=== PATIENT | male | born 1975 | race Hispanic/Latino ===

== ENCOUNTER 2017-05-29 13:51 | Emergency (ER) | payer BC ==
[2017-05-29 14:10] VITALS: RESP 18; O2SAT 98
--- NOTE | 2017-05-29 14:31 | ED PDOC ---
HPI: SOB/CHF/COPD History Per: Patient History/Exam Limitations: no limitations Onset/Duration Of Symptoms: Mins Current Symptoms Are (Timing): Better Initiating Event: Aspiration Current Respiratory Medications: None Associated Symptoms: Heart Racing, Light-headedness, Anxiety. denies: Fever, Chills, Sweating, Chest Pain, Bloody Cough, Productive Cough, Leg/Calf Pain, Ankle/Leg Swelling, Dizziness - Risk Factors PE Risk Factors: Neg: Extremity Immobilization/Fx, Decreased Mobilty /Activity, Recent Major Surgery, Recent Hospitalization, Active Cancer, Previous DVT, Previous PE, CHF, Venous Stasis, Recent Major Trauma <Crow Romo - Last Filed: 05/29/17 16:27> <Saloni Hernandez - Last Filed: 05/29/17 17:43> Time Seen by Provider: 05/29/17 14:04 Chief Complaint (Nursing): Shortness Of Breath Additional Complaint(s): CC: dyspnea HPI: 42 y/o man w/ no PMH presents to the ED w/ dyspnea. The patient reports the dyspnea started 30 minutes ago while he was sitting in his car and drinking water. The patient reports associated weakness, anxiety, and light-headedness. The patient denies headache, chest pain, abdominal pain, nausea, votiming, dysuria, and fevers. The patient reports that he has had panic attacks in the past, but the dyspnea today lasted longer. PMH: none PSH: none SOC: smokes 1 pack/day for about 20 years, drinks 6-7 beers about 3x a week, denies drugs ROS: negative for 12 points assessed unless otherwise reported in HPI (Crow Romo) Supervising Attending Note - Supervising Attending Note The Documented history was done by the: Physician Coal Screener, Attending Physician The documented physical exam was done by the: Physician Coal Screener, Attending Physician - Attestation: I have personally seen and examined this patient.: Yes I have fully participated in the care of the patient.: Yes I have reviewed all pertinent clinical information, including history, physical exam and plan: Yes <Saloni Hernandez - Last Filed: 05/29/17 17:43> Past Medical History - Family History Family History: States: Unknown Family Hx <Crow Romo - Last Filed: 05/29/17 16:27> <Saloni Hernandez - Last Filed: 05/29/17 17:43> Vital Signs: Last Vital Signs Temp 97.5 F L 05/29/17 15:18 Pulse 94 H 05/29/17 15:30 Resp 18 05/29/17 15:30 BP 156/98 H 05/29/17 15:30 Pulse Ox 98 05/29/17 16:27 - Allergies Allergies/Adverse Reactions: Allergies Allergy/AdvReac Type Severity Reaction Status Date / Time No Known Allergies Allergy Verified 05/29/17 14:02 Curb-65 Severity Score - CURB-65 Severity Score Confusion: No Bun >19mg/dl (>7mmol/L): No Respiratory Rate greater than/equal to 30: No Systolic BP <90 or Diastolic BP less than/equal 60mmHg: No Age >64: No Curb-65 Score: 0 Percentage 30-day mortality: 0.6% <Crow Romo - Last Filed: 05/29/17 16:27> Wells Criteria for PE - Wells Criteria for Pulmonary Embolism Clinical Signs and Symptoms of DVT: No P.E is #1 Diagnosis, or Equally Likely: No Heart Rate >100: Yes Immobilization at least 3 days;Surgery previous 4 weeks: No Previous, objectively diagnosed PE or DVT: No Hemoptysis: No Malignancy w/treatment within 6 months, or palliative: No Total Score: 1.5 <Crow Romo - Last Filed: 05/29/17 16:27> Review of Systems ROS Statement: Except As Marked, All Systems Reviewed And Found Negative Constitutional: Positive for: Weakness. Negative for: Fever, Chills, Sweats Eyes: Negative for: Vision Change Cardiovascular: Positive for: Palpitations, Light Headedness. Negative for: Chest Pain, Edema Respiratory: Positive for: Shortness of Breath. Negative for: Cough, Hemoptysis , Pleuritic Pain, Sputum, Wheezing Gastrointestinal: Negative for: Nausea, Vomiting, Abdominal Pain, Diarrhea Genitourinary Male: Negative for: Dysuria Skin: Negative for: Rash Neurological: Positive for: Weakness, Dizziness. Negative for: Numbness, Incoordination, Change in Speech, Confusion, Seizures, Altered Mental Status, Headache Psych: Positive for: Anxiety <Demetrius,Crow Be - Last Filed: 05/29/17 16:27> Physical Exam - Reviewed Nursing Documentation Reviewed: Yes Vital Signs Reviewed: Yes (tachycardia) - Physical Exam Appears: Positive for: No Acute Distress Head Exam: Positive for: ATRAUMATIC, NORMOCEPHALIC Skin: Positive for: Normal Color, Warm, Dry Eye Exam: Positive for: Normal appearance, EOMI, PERRL Neck: Positive for: Painless ROM, Supple Cardiovascular/Chest: Positive for: Chest Non Tender, Tachycardia. Negative for : Edema, JVD Respiratory: Positive for: Normal Breath Sounds (can speak in full sentences without interruption). Negative for: Decreased Breath Sounds, Accessory Muscle Use, Crackles, Rales, Rhonchi, Wheezing, Respiratory Distress Pulses-Carotid (L): 2+ Pulses-Carotid (R): 2+ Pulses-Post. Tibialis (L): 2+ Pulses-Post. Tibialis (R): 2+ Pulses-Radial (L): 2+ Pulses-Radial (R): 2+ Gastrointestinal/Abdominal: Positive for: Normal Exam, Bowel Sounds, Soft. 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 Negative for: Motor/Sensory Deficits, Aphasia, Facial Droop <Crow Romo - Last Filed: 05/29/17 16:27> - ECG O2 Sat by Pulse Oximetry: 98 <Crow Romo - Last Filed: 05/29/17 16:27> Medical Decision Making <Crow Romo - Last Filed: 05/29/17 16:27> <Saloni Hernandez - Last Filed: 05/29/17 17:43> Medical Decision Makin42 y/o man w/ no PMH presents to the ED w/ dyspnea. CXR: no acute pulmonary disease processes EKG: sinus tachycardia, no ST elevation/depression, no T-wave inversion/peaking , no prolonged QT interval, no prolonged segments re-evaluated 15:00 patient feels better HR 88 bpm breathing improved ambulates w/o issue Dispo: discharge to home, counseled to follow up w/ PMD (Crow Romo) Disposition - Patient ED Disposition Is Patient to be Admitted: No Discussed With : Saloni Hernandez Counseled Patient/Family Regarding: Studies Performed, Diagnosis, Need For Followup - Disposition Disposition: Routine/Home Disposition Time: 15:08 - POA Present On Arrival: None <Crow Romo - Last Filed: 05/29/17 16:27> <Saloni Hernandez - Last Filed: 05/29/17 17:43> - Clinical Impression Clinical Impression: Acute dyspnea, Aspiration of liquid - Disposition Referrals: [facility] Safety [facility] [Outside] Condition: IMPROVED Instructions: Dyspnea (ED), Foreign Body in Pharynx (ED) Print Language: [place]
--- NOTE | 2017-05-29 15:26 | RAD ---
HISTORY: Shortness of breath. COMPARISON: None. TECHNIQUE: Chest PA and lateral FINDINGS: LUNGS: No active pulmonary disease. PLEURA: No significant pleural effusion identified. No pneumothorax apparent. CARDIOVASCULAR: Normal. OSSEOUS STRUCTURES: No significant abnormalities. VISUALIZED UPPER ABDOMEN: Normal. OTHER FINDINGS: None. IMPRESSION: No active disease.
[2017-05-29 15:43] VITALS: BP 156/98; PULSE 94; TEMP 97.5
--- NOTE | 2017-06-07 11:50 | CARD ---
APPROVED REPORT EKG Measurement Heart [id number] <Conclusion> Sinus tachycardia Minimal voltage criteria for LVH, may be normal variant Nonspecific ST abnormality Abnormal ECG
== END 2017-05-29 15:30 | disposition home or self-care (01) ==
LOC: H.ER 13:51
DX: R06.00 Dyspnea, unspecified (principal); T17.920A Food in respiratory tract, part unspecified causing asphyxiation, initial encounter; F41.9 Anxiety disorder, unspecified